=== PATIENT | male | born 1960 | race African-American/Black ===

== ENCOUNTER 2021-11-28 12:07 | Outpatient (CLI) | payer OTHER ==
[~2021-11-28 12:07] MED LIST: Magnevist 469MG/ML 20 ML VIAL ONE
== END 2021-11-28 12:08 | disposition home or self-care (01) ==
LOC: CSHMRI 12:07
PROVIDERS: ATTEND Specialist
DX: M51.16 Intervertebral disc disorders with radiculopathy, lumbar region (principal); M48.061 Spinal stenosis, lumbar region without neurogenic claudication
CPT/HCPCS: 72158

== ENCOUNTER 2022-10-11 15:30 | Inpatient (IN) | payer MEDICARE ==
[2022-10-11 16:08] VITALS: BMI 29.0
[2022-10-11 16:22] LABS: Hemoglobin 13.2 g/dL (13.5-17.5); Mean Corpuscular HGB CONC 33.2 g/dL (32.0-36.0); Mean Corpuscular Hemoglobin 30.1 pg (27.0-33.0); Mean Corpuscular Volume 90.6 fl (81.2-95.1); Mean Platelet Volume 8.9 fl (7.4-10.4); Platelet Count 278 10x3/uL (150-450); RBC Distribution Width 12.8 % (11.5-14.5); Red Blood Cell (RBC) Count 4.38 10x6/uL (4.32-5.72); White Blood Cell (WBC) Count 7.8 10x3/uL (3.5-10.5)
[2022-10-11 16:33] LABS: PTT 27.9 sec (22.0-33.0)
[2022-10-11 16:39] LABS: Anion Gap 14 mmol/L (10-20); BUN (Urea Nitrogen) 19 mg/dL (8.4-25.7); Calc. Creatinine Clearance 0 mL/min (70-130); Calcium 9.2 mg/dL (7.8-10.44); Carbon Dioxide 24 mmol/L (23-31); Chloride 106 mmol/L (98-107); Estimated GFR 44; Glucose 83 mg/dL (80-115); Potassium 4.3 mmol/L (3.5-5.1); Sodium 140 mmol/L (136-145)
[2022-10-13] MEDS ORDERED: Thrombin 5000 UNITS/5 ML VIAL ONE (06:12)
[2022-10-13] MEDS ORDERED: Bupivacaine HCl 0.5%/Epinephrine 1:200,000/PF 30 ml Vial ONE (06:14)
[2022-10-13] MEDS ORDERED: Bupivacaine PF 0.5% 30 ML VIAL ONE (06:14)
[2022-10-13] MEDS ORDERED: Famotidine/PF 20 mg/2ml Vial ONE (06:29)
[2022-10-13] MEDS ORDERED: Rocuronium Bromide 10 MG/ML (10ML VIAL) ONE (06:37)
[2022-10-13] MEDS ORDERED: Fentanyl 250 MCG/5 ML VIAL ONE (06:37)
[2022-10-13] MEDS ORDERED: PROPOFOL 20 ML ONE ×3 (06:37→14:14)
[2022-10-13] MEDS ORDERED: Dexamethasone 20 MG/5 ML VIAL ONE (06:37)
[2022-10-13] MEDS ORDERED: Ondansetron PF 4 MG/2 ML Vial ONE (06:37)
[2022-10-13] MEDS ORDERED: PROPOFOL 40 ML ONE ×2 (06:42)
[2022-10-13] MEDS ORDERED: CEFAZOLIN 2 GM VIAL ONE (06:52)
[2022-10-13] MEDS ORDERED: PROPOFOL 80 ML ONE ×2 (08:36→10:49)
[2022-10-13] MEDS ORDERED: ePHEDrine Sulfate 50 MG/10 ML VIAL ONE (10:48)
[2022-10-13] MEDS ORDERED: CEFAZOLIN 1 GM VIAL ONE ×2 (11:17→12:41)
[2022-10-13] MEDS ORDERED: SUGAMMADEX SODIUM 200 MG/2 ML VIAL ONE (13:57)
[2022-10-13] MEDS ORDERED: Propofol 1,000 MG/100 ML VIAL IV ONE (14:16)
[2022-10-13] MEDS ORDERED: TETANUS, DIPHTHERIA TOX,ADULT (TDVAX) 0.5 ML VIAL IM ONE (14:56)
[2022-10-13] MEDS ORDERED: Communication Order-Pharmacy FS PRN (15:00)
[2022-10-13] MEDS ORDERED: Fentanyl 100 MCG/2 ML VIAL ONE (15:24)
[2022-10-13] MEDS ORDERED: traZODone HCl 50 MG TAB PO PRN (16:30)
[2022-10-13] MEDS: Morphine 4 MG/ML VIAL SLOW IVP PRN ×2 (16:44→19:49)
[2022-10-13] MEDS ORDERED: CEFAZOLIN 2 GM in Sodium Chloride 0.9% 100 ML IVPB SCH (17:00)
[2022-10-13] MEDS: CEFAZOLIN 2 GM in Sodium Chloride 0.9% 100 ML IVPB SCH (22:19)
[2022-10-13] MEDS: Aspirin 81 mg Enteric Coated Tablet PO SCH (22:23)
[2022-10-13] MEDS: Carvedilol 25 MG TAB PO SCH (22:23)
[2022-10-13] MEDS: Atorvastatin Calcium 20 MG TAB PO SCH (22:24)
[2022-10-13] MEDS: cloNIDine 0.1 MG TAB PO SCH (22:24)
[2022-10-14] MEDS: CEFAZOLIN 2 GM in Sodium Chloride 0.9% 100 ML IVPB SCH ×3 (03:44→20:36)
[2022-10-14] MEDS: HYDROcodone/Acetaminophen 10/325 mg Tablet PO PRN ×4 (03:44→21:25)
[2022-10-14 09:27] LABS: Hemoglobin 9.2 g/dL (13.5-17.5); Mean Corpuscular HGB CONC 33.3 g/dL (32.0-36.0); Mean Corpuscular Hemoglobin 30.4 pg (27.0-33.0); Mean Corpuscular Volume 91.1 fl (81.2-95.1); Mean Platelet Volume 9.6 fl (7.4-10.4); Platelet Count 223 10x3/uL (150-450); RBC Distribution Width 12.8 % (11.5-14.5); Red Blood Cell (RBC) Count 3.03 10x6/uL (4.32-5.72); White Blood Cell (WBC) Count 13.3 10x3/uL (3.5-10.5)
[2022-10-14] MEDS: Carvedilol 25 MG TAB PO SCH ×2 (09:34→20:40)
[2022-10-14] MEDS: Amlodipine 5 MG TAB PO SCH (09:34)
[2022-10-14] MEDS: Lisinopril 20 MG TAB PO SCH (09:35)
[2022-10-14] MEDS: cloNIDine 0.1 MG TAB PO SCH ×2 (09:35→20:41)
[2022-10-14] MEDS: Tamsulosin HCl 0.4 MG CAP PO SCH (09:36)
[2022-10-14 09:41] LABS: ALT (SGPT) 17 U/L (8-55); AST (SGOT) 24 U/L (5-34); Albumin 2.8 g/dL (3.4-4.8); Alkaline Phosphatase 57 U/L (40-110); Anion Gap 15 mmol/L (10-20); BUN (Urea Nitrogen) 22 mg/dL (8.4-25.7); Calc. Creatinine Clearance 49 mL/min (70-130); Calcium 7.9 mg/dL (7.8-10.44); Carbon Dioxide 21 mmol/L (23-31); Chloride 107 mmol/L (98-107); Estimated GFR 42; Globulin 2.3 g/dL (2.4-3.5); Glucose 111 mg/dL (80-115); Potassium 4.6 mmol/L (3.5-5.1); Protein, Total 5.1 g/dL (5.8-8.1); Sodium 138 mmol/L (136-145)
[2022-10-14 09:45] LABS: MDiff Complete? YES; Manual Diff?? YES
[2022-10-14 09:49] LABS: Band 3 % (5-11); Lymphocytes 17 % (21-51); Monocytes 5 % (0-10); Neutrophil 75 % (42-75)
[2022-10-14 09:50] LABS: Diff Comment (RBC Morph SCRN) NORMAL; Platelet Morphology Comment Appears Adequate
[2022-10-14] MEDS: Aspirin 81 mg Enteric Coated Tablet PO SCH ×2 (13:11→20:40)
[2022-10-14] MEDS: Ondansetron ODT 4 MG TAB PO PRN (13:12)
[2022-10-14] MEDS ORDERED: Clopidogrel Bisulfate 75 MG TAB PO SCH (15:00)
[2022-10-14] MEDS: Ondansetron PF 4 MG/2 ML Vial IVP PRN (20:35)
[2022-10-14] MEDS: Atorvastatin Calcium 20 MG TAB PO SCH (20:35)
[2022-10-15] MEDS: HYDROcodone/Acetaminophen 10/325 mg Tablet PO PRN ×2 (05:59→10:44)
[2022-10-15] MEDS: Nitroglycerin 0.4 MG TAB (25 Tab Bottle) SL PRN ×2 (08:32→10:43)
[2022-10-15] MEDS: Ondansetron ODT 4 MG TAB PO PRN (08:45)
[2022-10-15] MEDS: Carvedilol 25 MG TAB PO SCH ×2 (08:47→20:36)
[2022-10-15] MEDS: Clopidogrel Bisulfate 75 MG TAB PO SCH (08:48)
[2022-10-15] MEDS: cloNIDine 0.1 MG TAB PO SCH ×2 (08:48→20:37)
[2022-10-15] MEDS: Tamsulosin HCl 0.4 MG CAP PO SCH (08:48)
[2022-10-15] MEDS: Aspirin 81 mg Enteric Coated Tablet PO SCH ×2 (08:49→20:35)
[2022-10-15] MEDS: Amlodipine 5 MG TAB PO SCH (08:49)
[2022-10-15] MEDS: Lisinopril 20 MG TAB PO SCH (08:49)
[2022-10-15] MEDS: Polyethylene Glycol 3350 17 GM Packet PO PRN (08:50)
[2022-10-15 08:57] LABS: Anion Gap 16 mmol/L (10-20); BUN (Urea Nitrogen) 20 mg/dL (8.4-25.7); Calc. Creatinine Clearance 62 mL/min (70-130); Calcium 8.4 mg/dL (7.8-10.44); Carbon Dioxide 21 mmol/L (23-31); Chloride 107 mmol/L (98-107); Estimated GFR 55; Glucose 101 mg/dL (80-115); Potassium 4.1 mmol/L (3.5-5.1); Sodium 140 mmol/L (136-145)
[2022-10-15 08:58] LABS: Hemoglobin 9.2 g/dL (13.5-17.5); Mean Corpuscular HGB CONC 33.1 g/dL (32.0-36.0); Mean Corpuscular Hemoglobin 30.6 pg (27.0-33.0); Mean Corpuscular Volume 92.4 fl (81.2-95.1); Mean Platelet Volume 9.6 fl (7.4-10.4); Platelet Count 218 10x3/uL (150-450); RBC Distribution Width 12.9 % (11.5-14.5); Red Blood Cell (RBC) Count 3.01 10x6/uL (4.32-5.72)
[2022-10-15 08:59] LABS: MDiff Complete? YES; Manual Diff?? YES; White Blood Cell (WBC) Count 26.1 10x3/uL (3.5-10.5)
[2022-10-15 09:06] LABS: Band 4 % (5-11); Lymphocytes 7 % (21-51); Monocytes 6 % (0-10); Neutrophil 83 % (42-75)
[2022-10-15 09:07] LABS: Platelet Morphology Comment PLT clumps seen-ADEQ
[2022-10-15 09:08] LABS: Diff Comment (RBC Morph SCRN) NORMAL
[2022-10-15 09:35] LABS: Troponin I 0.075 ng/mL (< 0.028)
[2022-10-15] MEDS ORDERED: Mag-Al 1200 mg/1200 mg/30 ML UDCUP PO PRN (11:08)
[2022-10-15] MEDS ORDERED: Sodium Chloride 0.9% 1,000 ML IV SCH (11:45)
[2022-10-15] MEDS: Azithromycin 500 MG in Sodium Chloride 0.9% 250 ML 250 ML IVPB SCH (12:33)
[2022-10-15] MEDS: cefTRIAXone\\ROCEPHIN 2 GM in Sodium Chloride 0.9% 100 ML IVPB SCH (12:33)
[2022-10-15 12:39] LABS: Troponin I 0.093 ng/mL (< 0.028)
[2022-10-15] MEDS ORDERED: Calcium Carbonate 500 MG ChewTAB PO SCH (13:15)
[2022-10-15 14:44] LABS: Troponin I 0.103 ng/mL (< 0.028)
[2022-10-15] MEDS ORDERED: Sodium Chloride 0.9% 500 ML IV SCH (17:45)
[2022-10-15] MEDS: Atorvastatin Calcium 20 MG TAB PO SCH (20:35)
[2022-10-16 03:45] LABS: Hemoglobin 7.2 g/dL (13.5-17.5); Mean Corpuscular HGB CONC 33.8 g/dL (32.0-36.0); Mean Corpuscular Hemoglobin 30.9 pg (27.0-33.0); Mean Corpuscular Volume 91.4 fl (81.2-95.1); Mean Platelet Volume 9.9 fl (7.4-10.4); Platelet Count 206 10x3/uL (150-450); RBC Distribution Width 13.1 % (11.5-14.5); Red Blood Cell (RBC) Count 2.33 10x6/uL (4.32-5.72); White Blood Cell (WBC) Count 21.3 10x3/uL (3.5-10.5)
[2022-10-16 03:46] LABS: MDiff Complete? YES
[2022-10-16 03:56] LABS: Anion Gap 15 mmol/L (10-20); BUN (Urea Nitrogen) 37 mg/dL (8.4-25.7); Calc. Creatinine Clearance 44 mL/min (70-130); Calcium 7.9 mg/dL (7.8-10.44); Carbon Dioxide 20 mmol/L (23-31); Chloride 109 mmol/L (98-107); Estimated GFR 36; Glucose 110 mg/dL (80-115); Potassium 3.8 mmol/L (3.5-5.1); Sodium 140 mmol/L (136-145)
[2022-10-16 05:08] LABS: Band 3 % (5-11); Lymphocytes 2 % (21-51); Monocytes 4 % (0-10); Neutrophil 91 % (42-75)
[2022-10-16 05:12] LABS: Microcytosis SLIGHT = 6-15 cells (100X) (0-5/hpf); Platelet Clumps SLIGHT; Platelet Morphology Comment Appears Adequate; Polychromasia SLIGHT = 2-3 cells (100X) (0-2/hpf)
[2022-10-16] MEDS ORDERED: Albumin 25% 25 GM/100 ML BOT IVPB SCH (09:00)
[2022-10-16 09:16] LABS: Iron 13 ug/dL (65-175); Iron Binding Capacity, Total 151 mcg/dL (261-462)
[2022-10-16 12:16] LABS: Bilirubin Neg (Negative); Blood, Urine 25 (Negative); Clarity Clear (Clear); Glucose, Urine (Dipstick) Normal (Negative); Ketone, Urine Negative (Negative); Leukocyte Negative (Negative); Nitrite Negative (Negative); Protein, Urine (Dipstick) 30 mg/dl (Neg-Trace); Specific Gravity, Urine 1.025 (1.005-1.030); Urobilinogen Normal mg/dL (Less than 2)
[2022-10-16 12:24] LABS: Bacteria/HPF 1+ HPF (None Seen); Mucous/LPF 1+ LPF (<2+); RBC/HPF 0-3 HPF (0-3); Squamous Epithelial 0-3 HPF (0-3); WBC/HPF 0-3 HPF (0-3)
[2022-10-16] MEDS: Calcium Carbonate 500 MG ChewTAB PO SCH (12:28)
[2022-10-16] MEDS: Aspirin 81 mg Enteric Coated Tablet PO SCH ×2 (12:28→21:00)
[2022-10-16] MEDS: Tamsulosin HCl 0.4 MG CAP PO SCH (12:28)
[2022-10-16] MEDS: Clopidogrel Bisulfate 75 MG TAB PO SCH (12:28)
[2022-10-16] MEDS: Ondansetron PF 4 MG/2 ML Vial IVP PRN (12:29)
[2022-10-16 12:34] LABS: Creatinine, Urine 158.05 mg/dL (63-166)
[2022-10-16 13:28] LABS: Hemoglobin 7.7 g/dL (13.5-17.5)
[2022-10-16 17:15] LABS: Anion Gap 13 mmol/L (10-20); BUN (Urea Nitrogen) 33 mg/dL (8.4-25.7); Calc. Creatinine Clearance 61 mL/min (70-130); Calcium 8.5 mg/dL (7.8-10.44); Carbon Dioxide 21 mmol/L (23-31); Chloride 110 mmol/L (98-107); Estimated GFR 55; Glucose 102 mg/dL (80-115); Potassium 3.5 mmol/L (3.5-5.1); Sodium 140 mmol/L (136-145)
[2022-10-16] MEDS: cefTRIAXone\\ROCEPHIN 2 GM in Sodium Chloride 0.9% 100 ML IVPB SCH (18:26)
[2022-10-16] MEDS: Azithromycin 500 MG in Sodium Chloride 0.9% 250 ML 250 ML IVPB SCH (18:26)
[2022-10-16] MEDS: Sodium Bicarbonate 50 MEQ, Admixture Fee 1 EACH in Sodium Chloride 0.45% 1,000 ML IV SCH (18:27)
[2022-10-16] MEDS: HYDROcodone/Acetaminophen 10/325 mg Tablet PO PRN (19:49)
[2022-10-16] MEDS: Atorvastatin Calcium 20 MG TAB PO SCH (21:00)
[2022-10-17] MEDS: HYDROcodone/Acetaminophen 10/325 mg Tablet PO PRN ×2 (04:25→11:04)
[2022-10-17 05:07] LABS: Troponin I 0.042 ng/mL (< 0.028)
[2022-10-17] MEDS: Sodium Bicarbonate 50 MEQ, Admixture Fee 1 EACH in Sodium Chloride 0.45% 1,000 ML IV SCH ×2 (06:04→07:57)
[2022-10-17 07:19] LABS: #Eosinphils 0.1 10x3/uL (0.0-0.5); #Monocytes 1.5 10x3/uL (0.0-1.1); #Neutrophils 11.4 10x3/uL (1.5-8.4); %Basophils 0.1 % (0.0-2.0); %Eosinophils 0.6 % (0.0-6.0); %Monocytes 10.6 % (0.0-10.0); %Neutrophils 80.7 % (40.0-75.0); Hemoglobin 7.2 g/dL (13.5-17.5); Mean Corpuscular HGB CONC 33.2 g/dL (32.0-36.0); Mean Corpuscular Hemoglobin 30.3 pg (27.0-33.0); Mean Corpuscular Volume 91.2 fl (81.2-95.1); Mean Platelet Volume 9.4 fl (7.4-10.4); Platelet Count 239 10x3/uL (150-450); RBC Distribution Width 13.2 % (11.5-14.5); Red Blood Cell (RBC) Count 2.38 10x6/uL (4.32-5.72); White Blood Cell (WBC) Count 14.1 10x3/uL (3.5-10.5)
[2022-10-17 07:34] LABS: Anion Gap 13 mmol/L (10-20); BUN (Urea Nitrogen) 27 mg/dL (8.4-25.7); BUN/Creatinine Ratio 19.71; Calc. Creatinine Clearance 65 mL/min (70-130); Calcium 8.2 mg/dL (7.8-10.44); Carbon Dioxide 22 mmol/L (23-31); Chloride 108 mmol/L (98-107); Estimated GFR 58; Glucose 111 mg/dL (80-115); Phosphorus 2.1 mg/dL (2.3-4.7); Potassium 3.3 mmol/L (3.5-5.1); Sodium 140 mmol/L (136-145)
[2022-10-17] MEDS: Lactated Ringer's 1,000 ML IV SCH ×2 (08:01→17:59)
[2022-10-17] MEDS ORDERED: Potassium Phosphate 30 MMOL in Sodium Chloride 0.9% 250 ML 250 ML IVPB SCH (09:00)
[2022-10-17] MEDS: Calcium Carbonate 500 MG ChewTAB PO SCH (11:04)
[2022-10-17] MEDS: Aspirin 81 mg Enteric Coated Tablet PO SCH ×2 (11:05→21:08)
[2022-10-17] MEDS: Clopidogrel Bisulfate 75 MG TAB PO SCH (11:05)
[2022-10-17] MEDS: Tamsulosin HCl 0.4 MG CAP PO SCH (11:05)
[2022-10-17] MEDS: cefTRIAXone\\ROCEPHIN 2 GM in Sodium Chloride 0.9% 100 ML IVPB SCH (12:52)
[2022-10-17] MEDS: Azithromycin 500 MG in Sodium Chloride 0.9% 250 ML 250 ML IVPB SCH (13:51)
[2022-10-17] MEDS: Morphine 4 MG/ML VIAL SLOW IVP PRN ×2 (15:23→19:06)
[2022-10-17] MEDS: Iron, Sodium Ferric Gluconate 250 MG in Sodium Chloride 0.9% 250 ML 250 ML IVPB SCH (17:53)
[2022-10-17] MEDS: Atorvastatin Calcium 20 MG TAB PO SCH (21:07)
[2022-10-18] MEDS: Lactated Ringer's 1,000 ML IV SCH (00:45)
[2022-10-18 05:17] LABS: Albumin 2.9 g/dL (3.4-4.8); Anion Gap 14 mmol/L (10-20); BUN (Urea Nitrogen) 21 mg/dL (8.4-25.7); BUN/Creatinine Ratio 17.07; Calc. Creatinine Clearance 72 mL/min (70-130); Calcium 8.4 mg/dL (7.8-10.44); Carbon Dioxide 22 mmol/L (23-31); Chloride 110 mmol/L (98-107); Estimated GFR 66; Glucose 105 mg/dL (80-115); Phosphorus 2.7 mg/dL (2.3-4.7); Potassium 3.6 mmol/L (3.5-5.1); Sodium 142 mmol/L (136-145)
[2022-10-18 05:25] LABS: #Eosinphils 0.2 10x3/uL (0.0-0.5); #Monocytes 1.6 10x3/uL (0.0-1.1); #Neutrophils 8.1 10x3/uL (1.5-8.4); %Basophils 0.4 % (0.0-2.0); %Eosinophils 1.4 % (0.0-6.0); %Lymphocytes 6.8 % (18.0-47.0); %Monocytes 14.4 % (0.0-10.0); %Neutrophils 72.8 % (40.0-75.0); Hemoglobin 7.4 g/dL (13.5-17.5); Mean Corpuscular Hemoglobin 30.3 pg (27.0-33.0); Mean Corpuscular Volume 91.8 fl (81.2-95.1); Mean Platelet Volume 9.3 fl (7.4-10.4); Platelet Count 292 10x3/uL (150-450); Red Blood Cell (RBC) Count 2.44 10x6/uL (4.32-5.72); White Blood Cell (WBC) Count 11.1 10x3/uL (3.5-10.5)
[2022-10-18] MEDS ORDERED: Potassium Chloride 20 MEQ TAB PO SCH ×2 (08:00→11:30)
[2022-10-18] MEDS: Ondansetron PF 4 MG/2 ML Vial IVP PRN (08:54)
[2022-10-18] MEDS: Morphine 4 MG/ML VIAL SLOW IVP PRN ×2 (08:57→16:06)
[2022-10-18] MEDS ORDERED: Simethicone Chewable 80 MG TAB PO PRN (09:05)
[2022-10-18] MEDS: Calcium Carbonate 500 MG ChewTAB PO SCH (11:19)
[2022-10-18] MEDS: Sodium Bicarbonate Tab 325 MG TAB PO SCH ×2 (11:19→21:36)
[2022-10-18] MEDS: Tamsulosin HCl 0.4 MG CAP PO SCH (11:19)
[2022-10-18] MEDS: Clopidogrel Bisulfate 75 MG TAB PO SCH (11:20)
[2022-10-18] MEDS: Aspirin 81 mg Enteric Coated Tablet PO SCH ×2 (11:20→21:37)
[2022-10-18] MEDS: cefTRIAXone\\ROCEPHIN 2 GM in Sodium Chloride 0.9% 100 ML IVPB SCH (12:44)
[2022-10-18] MEDS ORDERED: Sodium Chloride 0.9% 250 ML 250 ML ONE ×2 (14:48→17:16)
[2022-10-18] MEDS: Azithromycin 500 MG in Sodium Chloride 0.9% 250 ML 250 ML IVPB SCH (14:55)
[2022-10-18] MEDS: Iron, Sodium Ferric Gluconate 250 MG in Sodium Chloride 0.9% 250 ML 250 ML IVPB SCH (18:56)
[2022-10-18] MEDS: Carvedilol 25 MG TAB PO SCH (21:36)
[2022-10-18] MEDS: Atorvastatin Calcium 20 MG TAB PO SCH (21:37)
[2022-10-19 05:00] LABS: Hemoglobin 7.3 g/dL (13.5-17.5); Mean Corpuscular HGB CONC 32.9 g/dL (32.0-36.0); Mean Corpuscular Hemoglobin 30.4 pg (27.0-33.0); Mean Corpuscular Volume 92.5 fl (81.2-95.1); Mean Platelet Volume 9.3 fl (7.4-10.4); Platelet Count 313 10x3/uL (150-450); RBC Distribution Width 13.2 % (11.5-14.5); White Blood Cell (WBC) Count 14.5 10x3/uL (3.5-10.5)
[2022-10-19 05:08] LABS: Anion Gap 14 mmol/L (10-20); BUN (Urea Nitrogen) 18 mg/dL (8.4-25.7); Calc. Creatinine Clearance 76 mL/min (70-130); Carbon Dioxide 23 mmol/L (23-31); Chloride 113 mmol/L (98-107); Potassium 3.9 mmol/L (3.5-5.1); Sodium 146 mmol/L (136-145)
[2022-10-19 05:09] LABS: Calcium 8.7 mg/dL (7.8-10.44); Estimated GFR 70; Glucose 109 mg/dL (80-115)
[2022-10-19 05:48] LABS: MDiff Complete? YES
[2022-10-19 05:52] LABS: Band 2 % (5-11); Eosinophils 1 % (0-10); Lymphocytes 5 % (21-51); Metamyelocyte 3 % (0-0); Monocytes 9 % (0-10); Neutrophil 80 % (42-75); Nucleated RBC (Manual Ct) 2 % (0)
[2022-10-19 06:01] LABS: Platelet Morphology Comment Appears Adequate; RBC Morphology Normal
[2022-10-19] MEDS: Ondansetron PF 4 MG/2 ML Vial IVP PRN (08:43)
[2022-10-19] MEDS: Tamsulosin HCl 0.4 MG CAP PO SCH (11:00)
[2022-10-19] MEDS: Aspirin 81 mg Enteric Coated Tablet PO SCH (11:00)
[2022-10-19] MEDS: Polyethylene Glycol 3350 17 GM Packet PO PRN (11:00)
[2022-10-19] MEDS: Carvedilol 25 MG TAB PO SCH (11:00)
[2022-10-19] MEDS: Calcium Carbonate 500 MG ChewTAB PO SCH (11:00)
[2022-10-19] MEDS: Clopidogrel Bisulfate 75 MG TAB PO SCH (11:00)
[2022-10-19] MEDS: Sodium Bicarbonate Tab 325 MG TAB PO SCH (11:00)
[2022-10-19] MEDS: Morphine 4 MG/ML VIAL SLOW IVP PRN (11:07)
[2022-10-19 12:08] VITALS: TEMP 97.6
[2022-10-19] MEDS: Azithromycin 500 MG in Sodium Chloride 0.9% 250 ML 250 ML IVPB SCH (12:38)
[2022-10-19] MEDS: cefTRIAXone\\ROCEPHIN 2 GM in Sodium Chloride 0.9% 100 ML IVPB SCH (12:39)
[2022-10-19 13:00] VITALS: BP 139/69
== END 2022-10-19 13:32 | disposition swing bed (61) | DRG 453 ==
LOC: CSHTELE 10-13 05:29
PROVIDERS: ADMIT Orthopaedic Surgery; ATTEND Family Medicine
PROC: 0SG0071 Fusion of Lumbar Vertebral Joint with Autologous Tissue Substitute, Posterior Approach, Posterior Column, Open Approach (ICD-10-PCS; principal; 2022-10-13)
PROC: 0SG00A0 Fusion of Lumbar Vertebral Joint with Interbody Fusion Device, Anterior Approach, Anterior Column, Open Approach (ICD-10-PCS; 2022-10-13)
PROC: 0SG3071 Fusion of Lumbosacral Joint with Autologous Tissue Substitute, Posterior Approach, Posterior Column, Open Approach (ICD-10-PCS; 2022-10-13)
PROC: 0SB20ZZ Excision of Lumbar Vertebral Disc, Open Approach (ICD-10-PCS; 2022-10-13)
PROC: 0SB40ZZ Excision of Lumbosacral Disc, Open Approach (ICD-10-PCS; 2022-10-13)
PROC: 0SG30A0 Fusion of Lumbosacral Joint with Interbody Fusion Device, Anterior Approach, Anterior Column, Open Approach (ICD-10-PCS; 2022-10-13)
PROC: 0SP004Z Removal of Internal Fixation Device from Lumbar Vertebral Joint, Open Approach (ICD-10-PCS; 2022-10-13)
PROC: 4A11X4G Monitoring of Peripheral Nervous Electrical Activity, Intraoperative, External Approach (ICD-10-PCS; 2022-10-13)
DX: T84.498A Other mechanical complication of other internal orthopedic devices, implants and grafts, initial encounter (principal); J18.9 Pneumonia, unspecified organism; K66.1 Hemoperitoneum; N17.9 Acute kidney failure, unspecified; D62 Acute posthemorrhagic anemia; E87.20 Acidosis, unspecified; M54.50 Low back pain, unspecified; M51.36 Other intervertebral disc degeneration, lumbar region; M51.37 Other intervertebral disc degeneration, lumbosacral region; I11.0 Hypertensive heart disease with heart failure; E78.5 Hyperlipidemia, unspecified; M96.1 Postlaminectomy syndrome, not elsewhere classified; I25.119 Atherosclerotic heart disease of native coronary artery with unspecified angina pectoris; E87.6 Hypokalemia; E83.39 Other disorders of phosphorus metabolism; M19.90 Unspecified osteoarthritis, unspecified site; G89.29 Other chronic pain; I50.9 Heart failure, unspecified; I25.2 Old myocardial infarction; Z95.5 Presence of coronary angioplasty implant and graft; Z95.1 Presence of aortocoronary bypass graft; Z86.73 Personal history of transient ischemic attack (TIA), and cerebral infarction without residual deficits; Z79.02 Long term (current) use of antithrombotics/antiplatelets; Z79.899 Other long term (current) drug therapy; Z90.49 Acquired absence of other specified parts of digestive tract; Z98.41 Cataract extraction status, right eye; Z98.42 Cataract extraction status, left eye
CPT/HCPCS: 36415; 71045; 72110; 74176; 80048; 80053; 80069; 81001; 82570; 82728; 83540; 83550; 83880; 84156; 84300; 84484; 84540; 85025; 85027; 85610; 85730; 86850; 86900; 86901; 87040; 93005; 93010; 94760; C1713; C1889; J0456; J0690; J0696; J1100; J2270; J2405; J2704; J2916; J3010; J3490; J7030; J7050; J7120; P9047; Q0162; S0020; S0028